=== PATIENT | female | born 1995 | race Hispanic/Latino ===

== ENCOUNTER 2017-12-31 18:04 | Emergency (ER) | payer MEDICAID, OTHER ==
[2017-12-31] MEDS ORDERED: ACETAMINOPHEN 325 MG TAB ONE (18:36)
== END 2017-12-31 19:20 | disposition home or self-care (01) ==
LOC: EDH 18:04
DX: S90.02XA Contusion of left ankle, initial encounter (principal); K50.90 Crohn's disease, unspecified, without complications; Z88.0 Allergy status to penicillin; W20.8XXA Other cause of strike by thrown, projected or falling object, initial encounter; Y93.89 Activity, other specified; Y92.69 Other specified industrial and construction area as the place of occurrence of the external cause; Y99.8 Other external cause status
CPT/HCPCS: 73610

== ENCOUNTER 2019-06-28 14:13 | Emergency (ER) | payer OTHER | END 2019-06-28 15:02 | disposition left against medical advice (07) | LOC: EDH 14:13 | DX: R06.02 Shortness of breath (principal); R05 Cough; R19.7 Diarrhea, unspecified; Z53.21 Procedure and treatment not carried out due to patient leaving prior to being seen by health care provider; Z88.0 Allergy status to penicillin ==